=== PATIENT | female | born 1935 | race Caucasian/White ===

== ENCOUNTER 2018-06-13 19:48 | Inpatient (IN) | payer MEDICARE ==
[~2018-06-13] VITALS: Ht 167.6 cm; Wt 67.6 kg
[~2018-06-13 19:48] MED LIST: [UNRECOGNIZED DRUG - OTHER]
--- NOTE | 2018-06-13 20:00 | NUR ---
TO BED 09 BIB EMS C/O FEVER AND GENERALIZED WEAKNESS X3 DAYS. PT AAOX4 NO ACUTE DISTRESS NOTED, RESP EVEN AND UNLABORED. PLACE PT ON CARDIAC MONITORING, CONTINUOUS POX. PENDING ER MD DSOUZA.
--- NOTE | 2018-06-13 20:10 | NUR ---
ER MD AT BEDSIDE TO EVAL PT WITH ORDERS RECEIVED. WILL CARRY OUT ORDERS. STARTED SL 18G TO RAC, BLOOD DRAWN AND SENT TO LAB.
[2018-06-13] MEDS ORDERED: ACETAMINOPHEN ES 500 MG TABLET ONE (20:19)
[2018-06-13 20:26] LABS: BASOPHILS # (AUTO) 0.1 /CMM (0.0-0.2); BASOPHILS % (AUTO) 0.7 % (0.0-2.0); EOSINOPHILS % (AUTO) 0.1 % (0.0-6.0); HEMATOCRIT 45 % (33-45); LYMPHOCYTES # (AUTO) 0.6 /CMM (0.8-4.8); LYMPHOCYTES % (AUTO) 3.9 % (20.0-44.0); MEAN CORPUSCULAR HGB CONC 33 g/dl (31.0-36.0); MEAN CORPUSCULAR VOLUME 95 fL (82-100); MONOCYTES # (AUTO) 1.5 /CMM (0.1-1.30); MONOCYTES % (AUTO) 9.5 % (2.0-12.0); NEUTROPHILS # (AUTO) 13.4 /CMM (1.8-8.9); NEUTROPHILS % (AUTO) 85.8 % (43.0-81.0); PLATELET COUNT (AUTO) 277 /CMM (150-450); WHITE BLOOD COUNT (AUTO) 15.6 K/uL (4.3-11.0)
[2018-06-13] MEDS ORDERED: IV NS 0.9% 1,000 ML BAG IV ONE ×2 (20:30→22:00)
[2018-06-13] MEDS ORDERED: ACETAMINOPHEN ES 500 MG TABLET PO ONE (20:30)
[2018-06-13 20:34] LABS: CARBON DIOXIDE 31 mmol/L (21-32); CHLORIDE 99 mmol/L (98-107); CREATININE 0.9 mg/dL (0.6-1.3); GLUCOSE 242 mg/dL (74-106); SODIUM SERUM 137 mmol/L (136-145); UREA NITROGEN, BLOOD 33 mg/dL (7-18)
--- NOTE | 2018-06-13 20:34 | NUR ---
PT MEDICATED ORDERED.
[2018-06-13 20:51] LABS: ALANINE AMINOTRANSFERASE 21 U/L (12-78); ALBUMIN 3.1 g/dL (3.4-5.0); ALKALINE PHOSPHATASE 60 U/L (46-116); ASPARTATE AMINOTRANSFERASE 21 U/L (15-37); BILIRUBIN,DIRECT 0.3 mg/dL (0.0-0.2); BILIRUBIN,TOTAL 0.8 mg/dL (0.2-1.0); TOTAL PROTEIN, SERUM 8.1 g/dL (6.4-8.2)
[2018-06-13] MEDS ORDERED: LEVOFLOXACIN 750 MG /D5W 150ML 150 ML IV ONE (21:57)
[2018-06-13] MEDS ORDERED: LEVOFLOXACIN 750 MG /D5W 150ML 750 MG in PREMIX 1 EA IV ONE (22:00)
--- NOTE | 2018-06-13 22:01 | NUR ---
PATIENTS TARIFF CLERK SEAN DEY
--- NOTE | 2018-06-13 22:05 | NUR ---
BED ASSIGNMENT 326-1
--- NOTE | 2018-06-13 22:18 | NUR ---
URINE SAMPLE COLLECTED AND SENT TO LAB.
--- NOTE | 2018-06-13 22:25 | NUR ---
REPORT CALLED TO M/S LYNDA OCAMPO.
[2018-06-13 22:45] VITALS: BP 141/74
[2018-06-13 22:51] LABS: APPEARANCE,URINE Cloudy (CLEAR); BILIRUBIN,URINE SMALL (NEGATIVE); BLOOD, URINE Moderate Ery/uL (NEGATIVE); COLOR,URINE Yellow (YELLOW); KETONES,URINE 40 (NEGATIVE); LEUKOCYTE ESTERASE ,URINE Trace (NEGATIVE); NITRITE, URINE Negative (NEGATIVE); PH,URINE 6.5 (5.0-8.0); PROTEIN,URINE >=300 mg/dl (NEGATIVE); UGLUCOSE Negative (NEGATIVE)
[2018-06-13 23:00] VITALS: BP 141/74
[2018-06-13 23:15] LABS: BACTERIA,URINE Rare /HPF (None Seen); SQUAMOUS EPITHELIAL CELL,UR Few /HPF (None Seen); WBC,URINE 51-80 /HPF (0-3)
[2018-06-13] MEDS ORDERED: Z GUARD REMEDY 2 OZ OINT TP PRN (23:30)
[2018-06-13] MEDS: ENOXAPARIN SODIUM 40 MG/0.4 ML DISP.SYRIN SQ SCH (23:30)
[2018-06-13] MEDS ORDERED: ONDANSETRON HCL/PF 4 MG/2 ML VIAL IVP PRN (23:30)
[2018-06-13] MEDS ORDERED: LEVOFLOXACIN (500MG) 500 MG TABLET PO SCH (23:30)
[2018-06-14] MEDS ORDERED: DEXTROSE 50%-WATER 50 ML DISP.SYRIN IV PRN
--- NOTE | 2018-06-14 00:01 | NUR ---
LOVENOX REFUSED PATIENT REFUSING LOVENOX. INFORMED OF THE RISK FOR BLOOD CLOTS DEVELOPING WHILE IN HOSPITAL AND HOW IT IS PRESCRIBED TO PREVENT BLOOD CLOTS. PATIENT STATES, "ABSOLUTELY NOT!" PATIENT OFFERED SLIDING SCALE COVERAGE OF REGULAR INSULIN FOR BS OF 237. PATIENT INFORMED THAT IT WILL HELP BRING BLOOD SUGAR DOWN TO A MORE NORMAL RANGE AND THAT IT IS BASED ON SCALE. PATIENT STATES, "NO THANK YOU I WILL JUST KEEP TO WHAT I NORMALLY GET AT HOME."
[2018-06-14] MEDS: ACETAMINOPHEN 325 MG TABLET PO PRN ×2 (00:47→16:26)
[2018-06-14] MEDS: IV NS 0.9% 1,000 ML IV PRN ×2 (00:51→21:14)
[2018-06-14] MEDS: TRAZODONE 50 MG TABLET PO SCH ×2 (01:20→21:03)
--- NOTE | 2018-06-14 07:30 | NUR ---
rn closing note pm bedside report given to geoff dempsey. patient seen in bed in no apparent distress. endorsed to geoff that pateitn temperature was taken this am per patients request and was 100 degrees. patient has no complaints at this time. poc reviewed questiosn concerns addressed.
[2018-06-14] MEDS: BLOOD SUGAR DIAGNOSTIC 1 EACH STRIP IN SCH ×4 (07:37→21:18)
--- NOTE | 2018-06-14 08:00 | NUR ---
MS RN AM NOTES ALERT AND ORIENTED X4.VERBALLY RESPONSIVE. WITH LLE WEAKNESS AND PT STATED SHE BROKE HER LEFT FOOT WHILE PLAYING BASKETBALL. PT IS SO EAGER TO GO HOME AMA. CALMLY EXPLAINED THENRISKS AND BENEFITS OF GOING AMA AND TO JUST WAIT TILL THE DOCTOR SEES HER. WITH ONGOING IVF OF NS AT 75 ML/HR INFUSING WELL TO RT AC.SEEN BY LYNDA VOLEGAL SERVICES MANAGER MARKET RESEARCHER.PT REFUSED TO HAVE HER BOTTOM/BACK CHECKED INSPITE OF EXPLAINING ITS IMPORTANCE. WILL TRY LATER.CALL LIGHT PLACED WITHIN REACH,
[2018-06-14 08:09] LABS: BASOPHILS % (AUTO) 0.1 % (0.0-2.0); EOSINOPHILS % (AUTO) 0.1 % (0.0-6.0); HEMATOCRIT 40 % (33-45); HEMOGLOBIN 13.4 g/dL (11.5-14.8); LYMPHOCYTES # (AUTO) 0.7 /CMM (0.8-4.8); LYMPHOCYTES % (AUTO) 5.8 % (20.0-44.0); MEAN CORPUSCULAR HGB CONC 34 g/dl (31.0-36.0); MEAN CORPUSCULAR VOLUME 93 fL (82-100); MONOCYTES # (AUTO) 1.5 /CMM (0.1-1.30); MONOCYTES % (AUTO) 13.2 % (2.0-12.0); NEUTROPHILS # (AUTO) 9.1 /CMM (1.8-8.9); NEUTROPHILS % (AUTO) 80.8 % (43.0-81.0); PLATELET COUNT (AUTO) 246 /CMM (150-450); RED BLOOD CELL COUNT(AUTO) 4.28 MIL/uL (4.0-5.2); WHITE BLOOD COUNT (AUTO) 11.3 K/uL (4.3-11.0)
[2018-06-14 08:19] VITALS: BP 156/78
[2018-06-14] MEDS ORDERED: KETO5DRO83 OP (08:38)
[2018-06-14] MEDS ORDERED: ATOR40TA PO (08:38)
[2018-06-14] MEDS ORDERED: CHOL20004 PO (08:38)
[2018-06-14] MEDS ORDERED: TRAZ-214 PO (08:38)
[2018-06-14] MEDS ORDERED: METF-442 PO (08:38)
[2018-06-14] MEDS ORDERED: GABA-534 PO (08:38)
[2018-06-14] MEDS ORDERED: LOSA50TA39 PO (08:38)
[2018-06-14] MEDS ORDERED: METF-440 PO (08:38)
[2018-06-14] MEDS ORDERED: GLIM2TAB2 PO ×2 (08:38)
[2018-06-14 08:39] LABS: CALCIUM, SERUM 9.5 mg/dL (8.5-10.1); CARBON DIOXIDE 28 mmol/L (21-32); CHLORIDE 102 mmol/L (98-107); CREATININE 0.8 mg/dL (0.6-1.3); GLUCOSE 174 mg/dL (74-106); MAGNESIUM 1.6 mg/dL (1.8-2.4); PHOSPHORUS 1.8 mg/dL (2.5-4.9); SODIUM SERUM 139 mmol/L (136-145); UREA NITROGEN, BLOOD 26 mg/dL (7-18)
[2018-06-14] MEDS: METFORMIN 500 MG TABLET PO SCH ×2 (08:40→16:27)
[2018-06-14 08:47] LABS: CHOLESTEROL 106 mg/dL (<200); HDL CHOLESTEROL 38 mg/dL (40-60); LDL 46 mg/dL (0-99); THYROID STIMULATING HORMONE 2.244 uIU/mL (0.358-3.74); TRIGLYCERIDES 159 mg/dL (30-150)
[2018-06-14] MEDS ORDERED: glyBURIDE 2.5 MG TABLET PO SCH (09:00)
--- NOTE | 2018-06-14 10:39 | NUR ---
WOUND CARE CONSULT: PT REFUSED TO TURN FOR FULL SKIN ASSESSMENT. PT ALLOWED ONLY ASSESSMENT OF FRONT OF BODY AND FEET. PT PRESENTS WITH LEFT GROIN RASH,SWELLING TO RT LATERAL ANKLE AND DRY RED LESIONS TO LEFT MEDIAL FOOT, PRESENT ON ADMISSION. RECOMMEND DPM CONSULT. DR TAO NOTIFIED OF DPM CONSULT. DEFER TO DPM FOR LOWER EXTREMITIES. ALL SKIN PROTECTION RECOMMENDATIONS DISCUSSED WITH NURSING STAFF. WILL SEE PRN. /MARLO IN AGREEMENT WITH PLAN OF CARE. CURRENT JUAN SCORE IS 16. Addendum: 06/14/18 at 1043 by GILDA BECKER WNDNU Amended: Links added.
[2018-06-14] MEDS: Magnesium 1GM/D5W 100ML PREMIX 100 ML IV SCH ×2 (10:59→12:16)
[2018-06-14] MEDS: INSULIN REGULAR, HUMAN 100 UNIT/ML 3 ML VIAL SQ PRN ×2 (12:18→21:18)
[2018-06-14] MEDS: NEUTRA PHOS 1 POWD.PACKET PO SCH ×3 (12:29→17:00)
--- NOTE | 2018-06-14 13:01 | NUR ---
PT C/O NAUSEA NOTIFIED AUGUST AND MADE AWARE.AWAITING FOR RESPONSE.
[2018-06-14] MEDS ORDERED: ONDANSETRON HCL/PF 4 MG/2 ML VIAL IVP PRN (13:10)
--- NOTE | 2018-06-14 13:30 | NUR ---
HELD INSULIN-PT DIDN'T EAT LUNCH-FEELING NAUSEOUS.WILL GIVE ZOFRAN IV
[2018-06-14] MEDS ORDERED: glyBURIDE 5 MG TABLET PO SCH (14:30)
[2018-06-14] MEDS: CLOTRIMAZOLE 1% 15 GM TUBE TP SCH ×2 (16:27→16:28)
--- NOTE | 2018-06-14 16:41 | NUR ---
BLOOD SUGAR 137 AND PT REFUSED INSULIN INSPITE OF EXPLAINING ITS RISKS AND BENEFITS. PT VERBALIZED THAT SHE HASN'T BEEN CHANGED THE WHOLE DAY WHEN SHE WAS ACTUALLY BEEN CLEANED AND CHANGED THIS MORNING. SPONGE BATH GIVEN 2ND TIME AND CHANGED ALL BED LINENS,GOWN WITH THE CAREGIVER AT BEDSIDE.
--- NOTE | 2018-06-14 17:00 | NUR ---
DURING SPONGE BATH,PT INSISTS TO REFUSE TO HAVE HER BUTTOCKS PHOTO TO BE TAKEN.WITH REDNESS NOTED.APPLIED Z GUARD.INSTRUCTED THE PT THE IMPORTANCE OF TURNING AND REPOSITIONING AND KEEPING HER HEELS AFLOAT WITH PILLOWS.
--- NOTE | 2018-06-14 18:00 | NUR ---
PT DENIES FEELING NAUSEOUS AT THE END OF THE SHIFT BUT ATE ONLY THE FRUIT PLATE IN THE DINNER TRAY.PT REFUSED INSULIN INSPITE OF EXPLAINING THE RISKS AND BENEFITS OF INSULIN.CALL LIGHT PLACED WITHIN REACH.
--- NOTE | 2018-06-14 19:34 | NUR ---
MS RN RECEIVE PT IN BED A/O X 3, RESPIRATIONS EVEN AND UNLABORED, NO SOB NOTED, NO DISTRESS, SAFETY MEASURES IN PLACE. WILL CONTINUE TO MONITOR.
[2018-06-14 20:00] VITALS: BP 155/85
[2018-06-14] MEDS: ENOXAPARIN SODIUM 40 MG/0.4 ML DISP.SYRIN SQ SCH (22:36)
--- NOTE | 2018-06-14 22:38 | NUR ---
NON ADMIN LOVENOX AND 2 UNITS OF INSULIN PATIENT REFUSING LOVENOX DUE AT 2330 TONIGHT AND 2 UNITS OF INSULIN DESPITE EXPLAINING RISKS AND BENEFITS. PATIENT STATES" I DONT WANT INSULIN MY BLOOD SUGAR IS OKAY NO LOVENOX TOO" BLOOD SUGAR 147 MG/DL OFFERED 3 TIMES STILL REFUSING PT A/O X4
[2018-06-15] MEDS: BLOOD SUGAR DIAGNOSTIC 1 EACH STRIP IN SCH ×3 (05:50→16:30)
[2018-06-15] MEDS: INSULIN REGULAR, HUMAN 100 UNIT/ML 3 ML VIAL SQ PRN (05:51)
--- NOTE | 2018-06-15 06:02 | NUR ---
MS RN ASLEEP AND EASILY AWAKEN, RESPIRATION EVEN AND UNLABORED, STABLE AND NOT IN DISTRESS, NEEDS ATTENDED AND ANTICIPATED, KEPT CLEAN AND DRY AND COMFORTABLE. NURSING CARE RENDERED, SAFETY MEASURES AT ALL TIMES. ENDORSE TO THE NEXT SHIFT.
--- NOTE | 2018-06-15 06:16 | NUR ---
NON ADMIN PT REFUSED 2 UNITS OF INSULIN BLOOD SUGAR 155 MG/DL PT STATES" IM OKAY NO NEED FOR INSULIN" DESPITE EXPLAINING RISKS AND BENEFITS OFFERED 3 TIMES STILL REFUSED.
--- NOTE | 2018-06-15 07:38 | NUR ---
MS RN Opening Notes Patient currently asleep, resting in bed. Semi-Fowlers position, supine. Alert and oriented x3, able to make needs known. No complaints of shortness of breath or chest pain at this time. Respirations even and unlabored on room air. Peripheral IV to the right AC 18 gauge, intact, patent and infusing fluids as ordered. Updated patient on current plan of care and safety measures. Safety and fall precautions in place: bed in lowest and locked position, side rails up x2, bed alarm on, call light and personal possessions within reach. Room well lit and floor clear of items. Reminded patient of safety measures, verbalized understanding. Patient currently clean, dry and comfortable. Will continue to monitor and intervene as needed.
[2018-06-15 08:00] VITALS: BP 140/80
[2018-06-15] MEDS ORDERED: LEVOFLOXACIN (750 MG) 750 MG TABLET PO SCH (09:00)
[2018-06-15] MEDS: CLOTRIMAZOLE 1% 15 GM TUBE TP SCH ×4 (09:23→16:13)
[2018-06-15] MEDS: NEUTRA PHOS 1 POWD.PACKET PO SCH (09:30)
[2018-06-15] MEDS: METFORMIN 500 MG TABLET PO SCH ×2 (09:30→16:13)
[2018-06-15 10:21] LABS: EOSINOPHILS % (AUTO) 0.3 % (0.0-6.0); MONOCYTES # (AUTO) 1.2 /CMM (0.1-1.30)
[2018-06-15 10:45] LABS: BASOPHILS % (AUTO) 0.3 % (0.0-2.0); HEMATOCRIT 39 % (33-45); HEMOGLOBIN 13.3 g/dL (11.5-14.8); LYMPHOCYTES # (AUTO) 0.9 /CMM (0.8-4.8); MEAN CORPUSCULAR HGB CONC 34 g/dl (31.0-36.0); MEAN CORPUSCULAR VOLUME 93 fL (82-100); MONOCYTES % (AUTO) 16.3 % (2.0-12.0); NEUTROPHILS # (AUTO) 5.4 /CMM (1.8-8.9); NEUTROPHILS % (AUTO) 71.1 % (43.0-81.0); PLATELET COUNT (AUTO) 269 /CMM (150-450); RED BLOOD CELL COUNT(AUTO) 4.21 MIL/uL (4.0-5.2); WHITE BLOOD COUNT (AUTO) 7.6 K/uL (4.3-11.0)
[2018-06-15 10:53] LABS: CALCIUM, SERUM 9.1 mg/dL (8.5-10.1); CARBON DIOXIDE 27 mmol/L (21-32); CHLORIDE 102 mmol/L (98-107); CREATININE 0.9 mg/dL (0.6-1.3); GLUCOSE 215 mg/dL (74-106); MAGNESIUM 1.8 mg/dL (1.8-2.4); PHOSPHORUS 2.2 mg/dL (2.5-4.9); POTASSIUM 3.6 mmol/L (3.5-5.1); SODIUM SERUM 138 mmol/L (136-145); UREA NITROGEN, BLOOD 19 mg/dL (7-18)
[2018-06-15 12:18] LABS: BAND % (MANUAL) 1 % (0.0-5.0); LYMPHOCYTES % (MANUAL) 16 % (16-48); MONOCYTES % (MANUAL) 11 % (0-11.0); NEUTROPHILS % (MANUAL) 72 (42-76)
[2018-06-15] MEDS ORDERED: K PHOS NEUTRAL 250 MG TABLET PO ONE (13:30)
[2018-06-15] MEDS ORDERED: LEVO750T21 PO (13:35)
[2018-06-15] MEDS: ACETAMINOPHEN 325 MG TABLET PO PRN (15:37)
--- NOTE | 2018-06-15 16:44 | NUR ---
MS talent acquisition assistant Notes Patient alert and oriented x4, able to make needs known. No complaints of shortness of breath or chest pain at this time. Respirations even and unlabored on room air. Peripheral IV to the right AC 18 gauge removed with catheter tip intact. No redness, swelling or bleeding of the site noted. Discharged with personal DME of wheelchair. Discharged with all personal belongings as noted per form. Discharge education and Exitcare provided to patient, verbalized understanding and verified via signature on discharge form. Per Mich Mcdaniel DNP, Dr. Han notified of discharge and education given via telephone at the patient's request. Patient provided new prescription, antibiotic and Zofran. Escorted to front lobby by [facility] staff, Claudia and transported home by private care accompanied by family friend, Tunde.
== END 2018-06-15 16:45 | disposition home or self-care (01) | DRG 872 ==
LOC: ER 19:50 → TELE 22:19 → MED 22:54
PROVIDERS: ADMIT Nurse Practitioner Acute Care; ATTEND Hospitalist
DX: A41.9 Sepsis, unspecified organism (principal); N39.0 Urinary tract infection, site not specified; E44.1 Mild protein-calorie malnutrition; L03.116 Cellulitis of left lower limb; E86.0 Dehydration; E11.65 Type 2 diabetes mellitus with hyperglycemia; F03.90 Unspecified dementia, unspecified severity, without behavioral disturbance, psychotic disturbance, mood disturbance, and anxiety; E88.09 Other disorders of plasma-protein metabolism, not elsewhere classified; Z79.84 Long term (current) use of oral hypoglycemic drugs; Z88.0 Allergy status to penicillin; Z88.2 Allergy status to sulfonamides; Z79.899 Other long term (current) drug therapy; E11.42 Type 2 diabetes mellitus with diabetic polyneuropathy; E83.39 Other disorders of phosphorus metabolism; E83.42 Hypomagnesemia; Z85.118 Personal history of other malignant neoplasm of bronchus and lung; B35.3 Tinea pedis; T14.8XXA Other injury of unspecified body region, initial encounter; X58.XXXA Exposure to other specified factors, initial encounter; Y92.9 Unspecified place or not applicable; M67.471 Ganglion, right ankle and foot; M62.81 Muscle weakness (generalized); M81.0 Age-related osteoporosis without current pathological fracture
CPT/HCPCS: 36415; 71045-TC; 73610-TC; 73630-TC; 80048-TC; 80061-TC; 80076-TC; 81000-TC; 82962-TC; 83605-TC; 83735-TC; 84100-TC; 84443-TC; 84484-TC; 85025-TC; 85730-TC; 87040-TC; 87081-TC; 87086-TC; 87186-TC; A4216; G0378; J1815; J1956; J2405; J3475; J7030